=== PATIENT | female | born 1970 | race Caucasian/White ===

== ENCOUNTER 2017-11-27 19:22 | Emergency (ER) | payer MEDICAID ==
[~2017-11-27] VITALS: Ht 157.5 cm; Wt 68.9 kg
[2017-11-27 19:28] VITALS: BP_SYST 156
[2017-11-27 19:58] VITALS: BP_SYST 142
== END 2017-11-27 19:55 | disposition home or self-care (01) ==
LOC: SED 19:22
DX: L23.9 Allergic contact dermatitis, unspecified cause (principal); R03.0 Elevated blood-pressure reading, without diagnosis of hypertension; Z88.0 Allergy status to penicillin
CPT/HCPCS: 99283